=== PATIENT | male | born 1965 | race Hispanic/Latino ===

== ENCOUNTER 2021-08-04 07:46 | Day surgery (SDC) | payer MEDICARE ==
[2021-07-28 12:22] LABS: BASOPHILS % (AUTO) 1.1 % (0.0-5.0); EOSINOPHILS % (AUTO) 2.5 % (0.0-8.0); HEMATOCRIT 42.9 % (42-54); LYMPHOCYTES % (AUTO) 11.3 % (21.0-51.0); MEAN CORPUSCULAR HEMOGLOBIN 34.2 pg (27.0-33.0); MEAN CORPUSCULAR HGB CONC 32.4 g/dL (32.0-36.0); MEAN CORPUSCULAR VOLUME 105.4 fL (79-99); MONOCYTES % (AUTO) 13.3 % (3.0-13.0); NEUTROPHILS % (AUTO) 71.4 % (40.0-77.0); PLATELET COUNT (AUTO) 127 K/uL (130-400); RED BLOOD CELL COUNT(AUTO) 4.07 MIL/uL (4.50-6.20); RED CELL DISTRIBUTION WIDTH 14.1 % (11.0-15.5); WHITE BLOOD COUNT (AUTO) 5.7 K/uL (4.8-10.8)
[2021-07-28 12:34] LABS: INR 1.06 (0.85-1.15); PROTHROMBIN TIME 11.5 SEC (9.6-11.6)
[2021-07-28 12:35] LABS: PARTIAL THROMBOPLASTIN TIME 28.5 SEC (26.3-35.5)
[2021-07-28 13:01] LABS: POTASSIUM 6.3 mmol/L (3.5-5.1)
[2021-07-28 13:02] LABS: CREATININE 12.4 mg/dL (0.5-1.5)
[~2021-08-04] VITALS: Ht 167.6 cm; Wt 80.2 kg
[~2021-08-04 07:46] MED LIST: ATOR10TA69 PO; FLUT1AER IH; FOLI0.8T43 PO; OLAN5TAB76 PO; PRED2.5T PO; SEVE800T7 PO; SODI5POW2 PO; VITA-380 PO
[2021-08-04 08:00] VITALS: BP 129/80
[2021-08-04] MEDS ORDERED: 0.9%NACL 1000ML 1,000 ML IV SCH (08:00)
[2021-08-04] MEDS ORDERED: LIDOCAINE HCL 1% MDV 50ML VIAL ONE (11:33)
[2021-08-04] MEDS ORDERED: BUPIVACAINE/PF 0.25% 30ML VIAL IJ ONE (11:33)
[2021-08-04 12:36] VITALS: BP 137/87
== END 2021-08-04 13:15 | disposition home or self-care (01) ==
LOC: DAH 07:46
PROVIDERS: ATTEND Internal Medicine Cardiovascular Disease
DX: I48.0 Paroxysmal atrial fibrillation (principal); I12.9 Hypertensive chronic kidney disease with stage 1 through stage 4 chronic kidney disease, or unspecified chronic kidney disease; N18.9 Chronic kidney disease, unspecified; Z79.01 Long term (current) use of anticoagulants; Z79.899 Other long term (current) drug therapy; Z98.890 Other specified postprocedural states
CPT/HCPCS: 33285; 36415 ×2; 80048; 84132; 85025; 85610; 85730; 93005; A4215; A4216; A4221; A4222; A4223 ×3; A4606; A4649; A4663; C1764; J3490 ×2